=== PATIENT | female | born 1955 | race Caucasian/White ===

== ENCOUNTER 2018-05-20 03:04 | Emergency (ER) | payer OTHER ==
[~2018-05-20] VITALS: Ht 154.9 cm; Wt 73.0 kg
[~2018-05-20 03:04] MED LIST: ASPI-650; CEPH-443 PO; FERR325C PO; GLIM4TAB; HYDR-3498 PO; HYDR-3980 PO; IBUP-1542 PO; LISI10TA2; METF500T3; MEVA40; PHEN95TA PO; SITA100T11 PO; SLSL1C50 TOP
[2018-05-20 03:11] VITALS: Ht 154.9 cm; Wt 73.0 kg
--- NOTE | 2018-05-20 03:30 | ERD ---
ER Documentation Chief Complaint Chief Complaint BIB SELF W/ C/O EPIGASTRIC AP HPI The patient is a 62-year-old female, presenting to the ER because of epigastric abdominal pain, radiating to the substernal area, had similar symptoms previously, felt as if it was her heartburn. She denies fever, chills, neck pain, chest pain with vomiting/radiation/exertion/diaphoresis, dyspnea, abdominal pain, vomiting, dizzy, diarrhea. She does not smoke nor drink Past medical history: Anemia, diabetes mellitus, hypertension, dyslipidemia Past surgical history: None ROS All systems reviewed and are negative except as per history of present illness. Medications Home Meds Active Scripts Pantoprazole* (Protonix*) 20 Mg Tablet.dr, 20 MG PO DAILY for 10 Days, TAB Prov:JENNIE RICHTER MD 05/20/18 Ibuprofen* (Motrin*) 600 Mg Tab, 600 MG PO Q6H PRN for PAIN AND OR ELEVATED TEMP, #30 TAB Prov:JENNIE RICHTER MD 05/20/18 Cephalexin* (Keflex*) 500 Mg Capsule, 500 MG PO QID for 7 Days, CAP Prov:JENNIE RICHTER MD 05/20/18 Cephalexin* (Keflex*) 500 Mg Capsule, 500 MG PO Q6, #30 CAP Prov:JOSHOSYOLISSTOLOS A. DO 03/21/16 Silver Sulfadiazine* (Thermazene*) 1%-50 gm Cream..g., 1 APPLIC TOP BID, #3 JAR Prov:LEJALILOSOYLISSTOLOS A. DO 03/21/16 Hydrocodone/Acetaminophen ([place] 10-325 Tablet) 1 Each Tablet, 1 TAB PO Q6H PRN for PAIN, #20 TAB Prov:LEKKOSAPOSTOLOS A. DO 03/21/16 Hydrocodone Bit-Acetaminophen* ([place]*) 5-325 Mg Tab, 1 TAB PO Q6 PRN for PAIN, #15 TAB Prov:AMELIE MADRIGAL MD 12/09/14 Ibuprofen* (Motrin*) 600 Mg Tab, 600 MG PO Q6, #20 TAB Prov:AMELIE MADRIGAL MD 12/09/14 Reported Medications Phenazopyridine Hcl (Azo-Tabs) 95 Mg Tablet, 1 TAB PO DAILY 06/20/11 Ferrous Sulfate (Iron) 325 Mg Capsr, 325 MG PO DAILY 06/20/11 Sitagliptin* (Januvia*) 100 Mg Tablet, 100 MG PO DAILY 06/20/11 Aspirin (Aspirin) 81 Mg Tablet 09/16/10 Lisinopril* (Lisinopril*) 10 Mg Tablet 04/12/10 Glimepiride* (Glimepiride*) 4 Mg Tablet 04/12/10 Lovastatin (Lovastatin) 40 Mg Tablet 04/12/10 Metformin* (Glucophage* XR) 500 Mg Tab.sr.24h 04/12/10 Allergies Allergies: Coded Allergies: No Known Drug Allergies (Verified Allergy, Mild, 03/21/16) PMhx/Soc History of Surgery: Yes (R HAND ) Anesthesia Reaction: No Hx Neurological Disorder: No Hx Respiratory Disorders: No Hx Cardiac Disorders: Yes (HTN) Hx Psychiatric Problems: No Hx Miscellaneous Medical Probl: Yes (ANEMIA, DM) Hx Alcohol Use: No Hx Substance Use: No Hx Tobacco Use: No Physical Exam Vitals Vital Signs Date Temp Pulse Resp B/P (MAP) Pulse Ox O2 O2 Flow FiO2 Time Delivery Rate 05/20/18 80 16 148/76 98 Room Air 06:17 (100) 05/20/18 82 16 132/59 99 Room Air 03:43 (83) 05/20/18 97.8 88 22 153/69 100 03:11 (97) Physical Exam Const: No acute distress. Head: Atraumatic. Eyes: Normal Conjunctiva. ENT: Normal External Ears, Nose and Mouth. Neck: Full range of motion. No meningismus. Resp: Clear to auscultation bilaterally. Cardio: Regular rate and rhythm. Abd: Soft, non distended, normal bowel sounds, non tender. Skin: No petechiae or rashes. Back: No midline or flank tenderness. Ext: No cyanosis, or edema. Neur: Awake and alert. No focal deficit Psych: Normal Mood and Affect. Result Diagram: 05/20/18 0345 05/20/18 0345 Results 24 hrs Laboratory Tests Test 05/20/18 03:45 05/20/18 04:05 White Blood Count 5.7 10^3/ul Red Blood Count 3.75 10^6/ul Hemoglobin 9.5 g/dl Hematocrit 30.5 % Mean Corpuscular Volume 81.3 fl Mean Corpuscular Hemoglobin 25.3 pg Mean Corpuscular Hemoglobin Concent 31.1 g/dl Red Cell Distribution Width 14.7 % Platelet Count 292 10^3/UL Mean Platelet Volume 10.5 fl Immature Granulocytes % 0.200 % Neutrophils % 57.9 % Lymphocytes % 31.5 % Monocytes % 7.6 % Eosinophils % 2.3 % Basophils % 0.5 % Nucleated Red Blood Cells % 0.0 /100WBC Immature Granulocytes # 0.010 10^3/ul Neutrophils # 3.3 10^3/ul Lymphocytes # 1.8 10^3/ul Monocytes # 0.4 10^3/ul Eosinophils # 0.1 10^3/ul Basophils # 0.0 10^3/ul Nucleated Red Blood Cells # 0.0 10^3/ul Sodium Level 142 mmol/L Potassium Level 4.1 mmol/L Chloride Level 108 mmol/L Carbon Dioxide Level 23 mmol/L Anion Gap 11 Blood Urea Nitrogen 18 mg/dl Creatinine 0.55 mg/dl Est Glomerular Filtrat Rate mL/min > 60 mL/min Glucose Level 148 mg/dl Calcium Level 9.4 mg/dl Total Bilirubin 0.2 mg/dl Direct Bilirubin 0.00 mg/dl Indirect Bilirubin 0.2 mg/dl Aspartate Amino Transf (AST/SGOT) 30 IU/L Alanine Aminotransferase (ALT/SGPT) 20 IU/L Alkaline Phosphatase 119 IU/L Troponin I < 0.012 ng/ml Total Protein 7.1 g/dl Albumin 3.8 g/dl Globulin 3.30 g/dl Albumin/Globulin Ratio 1.15 Lipase 140 U/L Bedside Urine pH (LAB) 5.5 Bedside Urine Protein (LAB) Negative Bedside Urine Glucose (UA) Negative Bedside Urine Ketones (LAB) Negative Bedside Urine Blood 1+ Bedside Urine Nitrite (LAB) Negative Bedside Urine Leukocyte Esterase (L 1+ Current Medications Medications Dose Sig/Phil Start Time Status Last (Trade) Ordered Route PRN Stop Time Admin Dose Reason Admin Morphine 2 mg ONCE STAT 05/20/18 DC 05/20/18 Sulfate IV 03:39 05/20/18 04:03 (morphine) 03:41 Ondansetron 4 mg ONCE STAT 05/20/18 DC 05/20/18 HCl (Zofran IV 03:39 05/20/18 04:03 Inj) 03:41 Ceftriaxone 50 ml @ ONCE ONCE 05/20/18 DC 05/20/18 Sodium 100 mls/hr IVPB 04:30 05/20/18 05:35 04:59 Procedures/MDM [place] [address] Radiology Main Line: [phone] DIAGNOSTIC IMAGING REPORT Patient: SARA CÁRDENAS : 1955 Age: 62 Sex: F MR #: [id number] DOS: 05/20/18 0339 Ordering MD: JENNIE RICHETR MD Location: E/R Room/Bed: PROCEDURE: Chest x-ray CLINICAL INDICATION: Abdominal pain. TECHNIQUE: VIEWS: 1 COMPARISON: None. FINDINGS: SUPPORT DEVICES: None CARDIAC AND MEDIASTINAL SILHOUETTES: Normal in size . There are thoracic aortic atherosclerotic calcifications. LUNGS AND PLEURAL SPACE: There is bibasilar, right greater than left fibrosis or chronic discoid atelectasis . No pulmonary edema, consolidation or pleural effusion. PNEUMOTHORAX: None. OSSEOUS STRUCTURES: Unremarkable. IMPRESSION: 1. No acute pulmonary change. 2. Bibasilar, right greater than left fibrosis or chronic discoid atelectasis. 3. Aortic atherosclerosis. RPTAT: HRSR Physician Jose Date Time Electronically viewed and signed by Prabhjot Nuñez Physician on 05/20/2018 04:31 RR/ CC: JENNIE RICHTER MD [id number] [place] [address] Radiology Main Line: [phone] DIAGNOSTIC IMAGING REPORT Patient: SARA CÁRDENAS : 1955 Age: 62 Sex: F MR #: [id number] DOS: 05/20/18 0339 Ordering MD: JENNIE RICHTER MD Location: E/R Room/Bed: PROCEDURE: Abdominal ultrasound CLINICAL INDICATION: Abdominal pain.. COMPARISON: None relevant listed. TECHNIQUE: Multiple transverse and longitudinal choe-scale images of the abdomen were obtained, supplemented with color, power, and spectral Doppler imaging when appropriate. FINDINGS: Liver Length: 15.3 cm. Parenchyma: Normal echogenicity. No suspicious mass or cyst. Hepatic veins: Appropriate direction of normal triphasic flow. Portal vein: Patent with normal hepatopetal flow. Biliary tree Gallbladder: No distension. No wall thickening. No pericholecystic fluid. No sludge or stones. Intrahepatic bile duct: Not dilated. Common bile duct: 1.8 mm. Pancreas: The visualized pancreas is normal. Right kidney Length: 8.1 x 4.1 x 4.3 cm. Parenchyma: No stone or hydronephrosis. IMPRESSION: 1. Unremarkable examination. RPTAT: HRSR Physician Jose Date Time Electronically viewed and signed by Prabhjot Nuñez Physician on 05/20/2018 05:10 RR/ CC: JENNIE RICHTER MD [id number] EKG: Read by emergency physician Rate/Rhythm: Normal Sinus Rhythm 76 beats/min QRS, ST, T-waves: No ST elevation, no T inversion, low voltage QRS, septal Q waves Impression: Abnormal EKG MEDICAL MAKING DECISION: The patient is a 62-year-old female, presenting with acute cystitis, probable GERD. She was treated with morphine 2 mg IV for pain, Zofran formula IV for nausea and Rocephin 1 g IV for acute cystitis, urine culture requested with good response, is stable for o/p follow-up The differential diagnoses considered include but are not limited to cholelithiasis, cholecystitis, choledocholithiasis, cholangitis, pancreatitis, hepatitis, gastritis, peptic ulcer disease, gastric ulcer, appendicitis, cystitis, diverticulitis, partial small bowel obstruction. Departure Diagnosis: Primary Impression: UTI (urinary tract infection) Additional Impression: Anemia JENNIE RICHTER MD May 20, 2018 03:30
[2018-05-20] MEDS ORDERED: morphine 2 MG INJ IV STA (03:39)
[2018-05-20] MEDS ORDERED: ONDANSETRON 4 MG INJ IV STA (03:39)
[2018-05-20] MEDS ORDERED: CEFTRIAXONE 1 GM/50 ML (PMX) 50 ML IVPB ONE (04:30)
[2018-05-20] MEDS ORDERED: IBUP-1542 PO (05:56)
[2018-05-20] MEDS ORDERED: CEPH-443 PO (05:56)
[2018-05-20] MEDS ORDERED: PANT20TA2 PO (05:57)
[2018-05-20 06:17] VITALS: BP 148/76; PULSE 80; RESP 16
== END 2018-05-20 06:18 | disposition home or self-care (01) ==
LOC: E/R 03:04
DX: N39.0 Urinary tract infection, site not specified (principal); D64.9 Anemia, unspecified; E11.9 Type 2 diabetes mellitus without complications; I10 Essential (primary) hypertension; Z79.82 Long term (current) use of aspirin; Z79.84 Long term (current) use of oral hypoglycemic drugs
CPT/HCPCS: 71045; 76705; 80053; 81003; 83690; 84484; 85025; 93005; J0696; J2270; J2405; 36415; 96374; 96375